=== PATIENT | male | born 1955 | race Caucasian/White ===

== ENCOUNTER 2017-12-12 14:03 | Emergency (ER) | payer BC, OTHER ==
[2017-12-12 15:11] LABS: Absolute Lymphocytes (CBC) 1.2 K/uL (0.7-4.9); Absolute Monocytes 0.5 K/uL (0.1-1.3); Absolute Neutrophil 5.3 K/uL (1.8-8.0); Basophils % 0.7 % (0-1.3); Eosinophils % 0.9 % (0-4.4); Hematocrit 44.2 % (39.6-49.0); Lymphocytes % 16.6 % (15.3-44.8); MCH 30.5 pg (27.0-35.0); MCV 90.3 fL (80-100); MPV 8.1 fL (7.6-11.3); Monocytes % 7.3 % (3.3-12.3)
--- NOTE | 2017-12-12 15:21 | RAD REPORT ---
EXAM DESCRIPTION: US - Abdomen Exam Limited - 12/12/2017 2:45 pm CLINICAL HISTORY: Abdominal pain COMPARISON: None. FINDINGS: A 10-12 mm echogenic focus is seen fixed in the neck. Posterior acoustic shadowing is diff icult to demonstrate. Body habitus is a limiting factor. Gallstone is suspected. No significant sludg e. There is no wall thickening or pericholecystic fluid. No common duct stone or biliary tree dilatation identified. IMPRESSION: A 10-12 mm gallstone fixed in the neck of the gallbladder. No other gallbladder or bilia ry tree finding.
[2017-12-12 15:36] LABS: Albumin 3.7 g/dL (3.4-5.0); Bilirubin Direct 0.1 mg/dL (0-0.2); Bilirubin Total 0.4 mg/dL (0.2-1.0); Potassium 4.2 mmol/L (3.5-5.1); Protein, Total 7.6 g/dL (6.4-8.2)
--- NOTE | 2017-12-12 16:15 | ER ---
Nurse's Notes [facility] Name: Radames Gonsalez Age: 62 yrs Sex: Male : 1955 Arrival Date: 12/12/2017 Time: 14:05 Bed 17 Private MD: Diagnosis: Cholelithiasis Presentation: 12/12 14:08 Presenting complaint: Patient states: Epigastric pain for four hours this morning la1 relieved by antacids. Pt denies N/V/D. Transition of care: patient was not received from another setting of care. Onset of symptoms was December 12, 2017. Risk Assessment: Do you want to hurt yourself or someone else? Patient reports no desire to harm self or others. Initial Sepsis Screen: Does the patient meet any 2 criteria? No. Patient's initial sepsis screen is negative. Does the patient have a suspected source of infection? No. Patient's initial sepsis screen is negative. Care prior to arrival: None. 14:08 Method Of Arrival: Ambulatory la1 14:08 Acuity: LANNY 3 la1 Triage Assessment: 14:10 General: Appears in no apparent distress. comfortable, Behavior is calm, cooperative, bp appropriate for age. Historical: - Allergies: 14:10 [place]; la1 14:10 Oats (Josse); la1 - PMHx: 14:10 None; la1 - PSHx: 14:10 shoulder; ankle; la1 - Immunization history:: Adult Immunizations up to date. - Social history:: Smoking status: Patient/guardian denies using tobacco. - Ebola Screening: : No symptoms or risks identified at this time. Screenin:31 Abuse screen: Denies threats or abuse. Denies injuries from another. Nutritional bp screening: No deficits noted. Tuberculosis screening: No symptoms or risk factors identified. Fall Risk None identified. Assessment: 14:10 General: Appears in no apparent distress. comfortable, Behavior is calm, cooperative, bp appropriate for age. Pain: Complains of pain in abdomen. Neuro: Level of Consciousness is awake, alert, obeys commands, Oriented to person, place, time, situation, Appropriate for age. Cardiovascular: No deficits noted. Respiratory: Airway is patent Respiratory effort is even, unlabored, Respiratory pattern is regular, symmetrical. GI: Abdomen is non-distended. : No signs and/or symptoms were reported regarding the genitourinary system. EENT: No deficits noted. Derm: No deficits noted. Musculoskeletal: Circulation, motion, and sensation intact. Range of motion: intact in all extremities. 14:31 Reassessment: PT TO U/S WITH MASTER PLUMBER. bp 16:34 Reassessment: PT D/C HOME AMBULATORY WITH FAMILY, DX WITH CHOLELITHIASIS. bp Vital Signs: 14:10 BP 166 / 95; Pulse 69; Resp 16; Temp 98.6; Pulse Ox 99% on R/A; Weight 108.86 kg; la1 Height 5 ft. 11 in. (180.34 cm); 16:30 BP 155 / 81; Pulse 71; Resp 16; Pulse Ox 99% ; bp 14:10 Body Mass Index 33.47 (108.86 kg, 180.34 cm) la1 ED Course: 14:05 Patient arrived in ED. as 14:09 Triage completed. la1 14:09 Arm band placed on right wrist. la1 14:12 Bess Mccord FNP-C is [facility]. kb 14:12 Greg aPz MD is Attending Physician. kb 14:13 Geo Rucker, RN is Primary Nurse. bp 14:31 Patient has correct armband on for positive identification. Bed in low position. Call bp light in reach. Side rails up X2. 14:45 US Abdomen Limited In Process Unspecified. EDMS 15:04 No provider procedures requiring assistance completed. Inserted saline lock: 20 gauge bp in left forearm, using aseptic technique. Blood collected. 16:30 IV discontinued, intact, bleeding controlled, No redness/swelling at site. Pressure bp dressing applied. Administered Medications: No medications were administered Outcome: 16:15 Discharge ordered by . kb 16:36 Discharged to home ambulatory, with family. bp 16:36 Condition: stable 16:36 Discharge instructions given to patient, Instructed on discharge instructions, follow up and referral plans. Demonstrated understanding of instructions, follow-up care. 16:36 Patient left the ED. bp Signatures: Dispatcher [employer] EDMS Bess Mccord FNP-C FNP-Ckb Martinez, Amelia as Attema, Lee, RN RN la1 Geo Rucker, LIZA RN bp
--- NOTE | 2017-12-12 16:15 | EDPHYS ---
Physician Documentation [facility] Name: Radames Gonsalez Age: 62 yrs Sex: Male : 1955 Arrival Date: 12/12/2017 Time: 14:05 Bed 17 Private MD: ED Physician Greg Paz HPI: 12/12 16:19 This 62 yrs old Male presents to ER via Ambulatory with complaints of kb Epigastric Pain. 16:19 The patient presents with abdominal pain in the right upper quadrant. Onset: The kb symptoms/episode began/occurred today. The symptoms do not radiate. Associated signs and symptoms: none. The symptoms are described as intermittent. Modifying factors: The symptoms are alleviated by antacids, the symptoms are aggravated by nothing. Severity of pain: At its worst the pain was moderate in the emergency department the pain has resolved. The patient has not experienced similar symptoms in the past. The patient has not recently seen a physician. Pt started having upper abd pain after eating earlier today, took antacids when he left work to come here and the pain resolved in route. Denies pain at this time. Historical: - Allergies: 14:10 [place]; la1 14:10 Oats (Josse); la1 - PMHx: 14:10 None; la1 - PSHx: 14:10 shoulder; ankle; la1 - Immunization history:: Adult Immunizations up to date. - Social history:: Smoking status: Patient/guardian denies using tobacco. - Ebola Screening: : No symptoms or risks identified at this time. ROS: 16:19 Constitutional: Negative for fever, chills, and weight loss, ENT: Negative for injury, kb pain, and discharge, Neck: Negative for injury, pain, and swelling, Cardiovascular: Negative for chest pain, palpitations, and edema, Respiratory: Negative for shortness of breath, cough, wheezing, and pleuritic chest pain, Back: Negative for injury and pain, MS/Extremity: Negative for injury and deformity, Skin: Negative for injury, rash, and discoloration, Neuro: Negative for headache, weakness, numbness, tingling, and seizure. 16:19 Abdomen/GI: Positive for abdominal pain, Negative for nausea, vomiting, and diarrhea, constipation, abdominal cramps, abdominal distension, anorexia. Exam: 16:19 Constitutional: This is a well developed, well nourished patient who is awake, alert, kb and in no acute distress. Head/Face: Normocephalic, atraumatic. Chest/axilla: Normal chest wall appearance and motion. Nontender with no deformity. No lesions are appreciated. Cardiovascular: Regular rate and rhythm with a normal S1 and S2. No gallops, murmurs, or rubs. Normal PMI, no JVD. No pulse deficits. Respiratory: Lungs have equal breath sounds bilaterally, clear to auscultation and percussion. No rales, rhonchi or wheezes noted. No increased work of breathing, no retractions or nasal flaring. Abdomen/GI: Soft, non-tender, with normal bowel sounds. No distension or tympany. No guarding or rebound. No evidence of tenderness throughout. Back: No spinal tenderness. No costovertebral tenderness. Full range of motion. Skin: Warm, dry with normal turgor. Normal color with no rashes, no lesions, and no evidence of cellulitis. MS/ Extremity: Pulses equal, no cyanosis. Neurovascular intact. Full, normal range of motion. Neuro: Awake and alert, GCS 15, oriented to person, place, time, and situation. Cranial nerves II-XII grossly intact. Motor strength 5/5 in all extremities. Sensory grossly intact. Cerebellar exam normal. Normal gait. Vital Signs: 14:10 BP 166 / 95; Pulse 69; Resp 16; Temp 98.6; Pulse Ox 99% on R/A; Weight 108.86 kg; la1 Height 5 ft. 11 in. (180.34 cm); 16:30 BP 155 / 81; Pulse 71; Resp 16; Pulse Ox 99% ; bp 14:10 Body Mass Index 33.47 (108.86 kg, 180.34 cm) la1 MDM: 14:12 Patient medically screened. kb 16:13 Data reviewed: vital signs, nurses notes. Data interpreted: Pulse oximetry: on room air kb is 99 %. Interpretation: normal. Counseling: I had a detailed discussion with the patient and/or guardian regarding: the historical points, exam findings, and any diagnostic results supporting the discharge/admit diagnosis, lab results, radiology results, the need for outpatient follow up, a general surgeon, to return to the emergency department if symptoms worsen or persist or if there are any questions or concerns that arise at home. 12/12 14:15 Order name: Basic Metabolic Panel; Complete Time: 15:51 kb 12/12 14:15 Order name: CBC with Diff; Complete Time: 15:27 kb 12/12 14:15 Order name: Hepatic Function; Complete Time: 15:51 kb 12/12 14:15 Order name: Lipase; Complete Time: 15:51 kb 12/12 14:15 Order name: IV Saline Lock; Complete Time: 15:03 kb 12/12 14:15 Order name: US Abdomen Limited; Complete Time: 15:22 kb 12/12 14:15 Order name: Labs collected and sent; Complete Time: 15:03 kb Administered Medications: No medications were administered Disposition: 18:44 Co-signature as Attending Physician, Greg Paz MD available for consultation at ps1 all times. Disposition: 12/12/17 16:15 Discharged to Home. Impression: Cholelithiasis. - Condition is Stable. - Discharge Instructions: Cholelithiasis, [id number]. - Medication Reconciliation Form, Thank You Letter, Antibiotic Education, Prescription Opioid Use form. - Follow up: Emergency Department; When: As needed; Reason: Worsening of condition. Follow up: Private Physician; When: 2 - 3 days; Reason: Recheck today's complaints, Continuance of care, Re-evaluation by your physician. Signatures: Dispatcher [employer] EDIL Bess Mccord, ROGE-C ORE FIELDER-Andrew Cleveland RN RN Geo Silva RN Greg Bingham MD MD ps1 Corrections: (The following items were deleted from the chart) 16:36 16:15 12/12/2017 16:15 Discharged to Home. Impression: Cholelithiasis. Condition is bp Stable. Forms are Medication Reconciliation Form, Thank You Letter, Antibiotic Education, Prescription Opioid Use. Follow up: Emergency Department; When: As needed; Reason: Worsening of condition. Follow up: Private Physician; When: 2 - 3 days; Reason: Recheck today's complaints, Continuance of care, Re-evaluation by your physician. kb
== END 2017-12-12 16:36 | disposition home or self-care (01) ==
LOC: ER 14:03
DX: K80.20 Calculus of gallbladder without cholecystitis without obstruction (principal); Z88.6 Allergy status to analgesic agent
CPT/HCPCS: 36415; 76705; 80048; 80076; 83690; 85025; 99283

== ENCOUNTER 2018-01-08 08:39 | Day surgery (SDC) | payer BC ==
--- NOTE | 2018-01-08 08:30 | EKG ---
Test Date: 2018-01-08 Test Time: 08:28:27 Clam Grower: ANGELA MEASUREMENT RESULTS: Intervals: Rate: 55 IA: 142 QRSD: 108 QT: 414 QTc: 396 [place]: P: 27 IA: 142 QRS: 65 T: 34 INTERPRETIVE STATEMENTS: Sinus bradycardia Otherwise normal ECG No previous ECG available for comparison Electronically Signed On 01-08-18 08:30:03 DIGITAL COMMENTATOR by Parveen Phelps
--- NOTE | 2018-01-08 08:46 | RAD REPORT ---
EXAM DESCRIPTION: RAD - Chest Pa And Lat (2 Views) - 01/08/2018 8:37 am CLINICAL HISTORY: preop Chest pain. COMPARISON: No comparisons FINDINGS: Mild linear opacities are present in the left lung base likely representing subsegmental a telectasis. The lungs are otherwise clear. The heart is normal in size. No displaced fractures. IMPRESSION: Mild linear subsegmental atelectasis in the left lung base.
[2018-01-08 08:53] LABS: Absolute Lymphocytes (CBC) 1.5 K/uL (0.7-4.9); Absolute Monocytes 0.5 K/uL (0.1-1.3); Absolute Neutrophil 4.2 K/uL (1.8-8.0); Basophils % 0.8 % (0-1.3); Eosinophils % 1.9 % (0-4.4); Hematocrit 45.1 % (39.6-49.0); Lymphocytes % 23.4 % (15.3-44.8); MCH 30.8 pg (27.0-35.0); MCV 89.3 fL (80-100); MPV 8.4 fL (7.6-11.3); Monocytes % 7.7 % (3.3-12.3); RBC Red Blood Cell Count 5.04 M/uL (4.33-5.43)
[2018-01-08] MEDS ORDERED: CEFOXITIN/SWI 1gm 1 GM/10 ML SYR ONE (09:15)
[2018-01-08] MEDS ORDERED: Ringers Lactate 1,000 ML IV ONE (09:15)
[2018-01-08] MEDS ORDERED: PROPOFOL 200 MG/20 ML VIAL IV ONE ×2 (09:32→10:11)
[2018-01-08] MEDS ORDERED: FENTANYL CITR 100 MCG/2 ML ONE (09:33)
[2018-01-08] MEDS ORDERED: MIDAZOLAM HCL 2 MG/2 ML INJ ONE (09:33)
[2018-01-08] MEDS ORDERED: LIDOCAINE 2% MPF 5 ML VIAL ONE (09:34)
[2018-01-08] MEDS ORDERED: ONDANSETRON HCL 40 MG/20 ML VIAL ONE (09:35)
[2018-01-08] MEDS ORDERED: ROCURONIUM 50 MG/5 ML VIAL IV ONE (09:35)
[2018-01-08] MEDS ORDERED: DEXAMETHASONE 4 MG/ML VIAL ONE (10:19)
[2018-01-08] MEDS ORDERED: Phenylephrine HCl 10 MG/ML 1 ML VIAL ONE (10:37)
[2018-01-08] MEDS ORDERED: GLYCOPYRROLATE 0.2 MG/ML SYR ONE (10:56)
[2018-01-08] MEDS ORDERED: NEOSTIGMINE 1 MG/ML -5 ML SYRINGE ONE (10:57)
[2018-01-08] MEDS ORDERED: TRAMADOL 37.5mg/APAP 325mg PER TAB ONE (12:35)
--- NOTE | 2018-01-08 22:23 | DS ---
Date of Discharge: 01/08/2018 The patient will go to Day Surgery and home when stable. Disposition: Home. Condition: Stable. Discharge Instructions: Resume home medications and diet. Activity as tolerated. No heavy lifting. Remove outer dressing in 2 days. Shower. Keep wound clean and dry. Follow up in my office in 1 w [place]. Call for appointment. Ultracet 1 tablet p.o. q.4 hours p.r.n. pain. Keep Steri-Strips on at a ll times. HUSSAIN/RYAN Voice ID: [id number] Report ID: [id number]
--- NOTE | 2018-01-08 22:23 | OP ---
Date of Procedure: 01/08/2018 Surgeon: Nickolas Fortune MD Scooter Mechanic: RENETTA Humphreys. Preoperative Diagnosis: Symptomatic cholelithiasis. Postoperative Diagnosis: Symptomatic cholelithiasis. Procedure: Laparoscopic cholecystectomy. Estimated Blood Loss: Minimal. Specimen: Gallbladder. Findings: As above. Anesthesia: General. Complications: None. Disposition: The patient tolerated the procedure in stable condition and was taken to Recovery in go od general condition. Description Of Procedure: The patient was brought to the OR and placed in supine position. General anesthesia was begun. The patient was prepped and draped in the usual sterile fashion. Marcaine 0.5 % was infiltrated locally. A 15-blade was used to make a 1-cm supraumbilical midline incision. Subc utaneous tissue was divided. The fascia was identified and divided. A #1 Vicryl stay suture was lizette dannie. Peritoneal cavity was entered with blunt dissection. A 12-mm trocar was placed into the perito christen cavity under direct vision. Pneumoperitoneum was established. Three 5-mm trocars were placed, one in the epigastrium just to the right of midline and two in the right subcostal region. Laparosco py revealed chronic inflammation of the gallbladder with minimal adhesions, taken down with sharp and blunt dissection. Bleeding was controlled with cautery. Fundus was retracted superiorly. Infundib ulum was identified and retracted inferolaterally. Cystic duct and cystic artery were clearly identi fied with blunt dissection. Clips were placed. Both structures were divided. Cautery was used to r emove the gallbladder from the liver bed. Bleeding on the liver bed was controlled with cautery. Th e gallbladder was retrieved through the umbilicus via an EndoCatch bag. Right upper quadrant was exa mined. No evidence of bleeding or bile leakage was appreciated. Subsequently, all trocars were freeman carly under direct vision. Stay sutures were tied to each other to reapproximate the fascial defect. Subcutaneous wounds were irrigated. Bleeding was controlled cautery. A 3-0 chromic was used to reap proximate the subcutaneous tissue and close the skin. Sterile dressing was applied. The patient was awakened and taken to recovery in good general condition. /MODL Voice ID: [id number] Report ID: [id number]
== END 2018-01-08 13:35 | disposition home or self-care (01) ==
LOC: OR 08:39
PROVIDERS: ATTEND Surgery
PROC: 0FT44ZZ Resection of Gallbladder, Percutaneous Endoscopic Approach (ICD-10-PCS; principal; 2018-01-08 10:00)
DX: K80.10 Calculus of gallbladder with chronic cholecystitis without obstruction (principal); I10 Essential (primary) hypertension; K21.9 Gastro-esophageal reflux disease without esophagitis; Z88.6 Allergy status to analgesic agent; Z80.9 Family history of malignant neoplasm, unspecified; Z83.3 Family history of diabetes mellitus
CPT/HCPCS: 36415; 71046; 80048; 82150; 85025; 88304; 93005; J2250; J2370; J2405; J2704; J2710; J3010